=== PATIENT | male | born 1970 | race Caucasian/White ===

== ENCOUNTER 2020-03-16 14:38 | Emergency (ER) | payer SELFPAY ==
--- NOTE | 2020-03-16 16:04 | ER Document Report ---
ED Medical Screen (RME) - General Chief Complaint: Laceration Stated Complaint: LACERATION Time Seen by Provider: 03/16/20 15:56 Mode of Arrival: Ambulatory Information source: Patient Notes: Patient states that he had a drywall mud tool in his pocket and bent over grabbing supplies and accidentally cut his right forearm. Patient with large laceration to volar aspect of right forearm. Bleeding controlled at this time. I have greeted and performed a rapid initial assessment of this patient. A comprehensive ED assessment and evaluation of the patient, analysis of test results and completion of the medical decision making process will be conducted by additional ED providers. Physical Exam - Vital signs Vitals: Temp Pulse Resp BP Pulse Ox 97.6 F 106 H 18 149/98 H 100 03/16/20 15:15 03/16/20 15:15 03/16/20 15:15 03/16/20 15:15 03/16/20 15:15 - Skin Skin irregularity: Laceration - 9 cm laceration to volar aspect of right forearm Course - Vital Signs Vital signs: Temp Pulse Resp BP Pulse Ox 97.6 F 106 H 18 149/98 H 100 03/16/20 15:15 03/16/20 15:15 03/16/20 15:15 03/16/20 15:15 03/16/20 15:15
[2020-03-16] MEDS ORDERED: DIPH/PERTUSS(ACELL)/TETANUS VAC/PF 0.5 ML SYR (>=10YO) IM ONE (16:15)
[2020-03-16] MEDS ORDERED: HYDROCODONE/ACETAMINOPHEN 5-325 MG TABLET PO ONE (17:30)
[2020-03-16] MEDS ORDERED: LIDOCAINE 1%/EPINEPHRINE INJ 20 ML VIAL INJ ONE (17:31)
--- NOTE | 2020-03-16 18:25 | RADIOLOGY REPORT (SQ) ---
EXAM DESCRIPTION: FOREARM RIGHT IMAGES COMPLETED DATE/TIME: 03/16/2020 5:58 pm REASON FOR STUDY: arm lac COMPARISON: None. NUMBER OF VIEWS: Two views. TECHNIQUE: Two radiographic images acquired of the right forearm, including elbow and wrist in at le ast one projection. LIMITATIONS: None. FINDINGS: MINERALIZATION: Normal. BONES: No acute fracture. No worrisome bone lesions. SOFT TISSUES: Soft tissue injury. OTHER: No other significant finding. IMPRESSION: Soft tissue injury. No osseous abnormality. TECHNICAL DOCUMENTATION: JOB ID: [id number] [employer]- All Rights Reserved Reading location - IP/workstation name: [email or web address]
--- NOTE | 2020-03-16 19:54 | ER Document Report ---
ED General - General Chief Complaint: Laceration Stated Complaint: LACERATION Time Seen by Provider: 03/16/20 15:56 Mode of Arrival: Ambulatory Notes: 49 y/o male who reports no past medical history presenting today after laceration to right forearm caused by a dry walling tool/exact knife. Patient states that it was in his pocket and he leaned forward and lacerated his arm. He was able to control the bleeding by placing pressure. He can flex and extend his wrist. Can feel me touch his fingers. No additional symptoms reported at this time. He received his tetanus booster while in triage today. - Related Data Allergies/Adverse Reactions: No Known Allergies Allergy (Verified 03/16/20 16:13) Past Medical History - General Information source: Patient - Social History Smoking Status: Current Every Day Smoker Frequency of alcohol use: None Drug Abuse: None Family History: Reviewed & Not Pertinent - Past Medical History Cardiac Medical History: Reports: None Pulmonary Medical History: Reports: None Endocrine Medical History: Reports: None Renal/ Medical History: Reports: None - Immunizations Hx Diphtheria, Pertussis, Tetanus Vaccination: Yes - 03/16/2020 Review of Systems - Review of Systems Constitutional: No symptoms reported EENT: No symptoms reported Cardiovascular: No symptoms reported Respiratory: No symptoms reported Gastrointestinal: No symptoms reported Genitourinary: No symptoms reported Skin: See HPI Physical Exam - Vital signs Vitals: Temp Pulse Resp BP Pulse Ox 97.6 F 106 H 18 149/98 H 100 03/16/20 15:15 03/16/20 15:15 03/16/20 15:15 03/16/20 15:15 03/16/20 15:15 Interpretation: Tachycardic. No: Bradycardic, Tachypneic, Febrile - Notes Notes: Adult General: GENERAL: Alert, interacts well. No acute distress HEAD: Normocephalic, atraumatic EYES: Extraocular movements intact. ENT: Airway patent. Nares patent. NECK: Full range of motion. Supple. Trachea midline. LUNGS: Nontender chest wall. GENITOURINARY: Deferred EXTREMITIES: 9 cm laceration to right anterior forearm. Good distal sensation, Good cap refill. 2+ radial pulse. Moves all 4 extremities spontaneously. No cyanosis. BACK: Moves all extremities with full range of motion. NEUROLOGICAL: Alert and oriented x3. Normal speech. Strength 5/ 5 in all extremities. PSYCH: Normal affect, normal mood. SKIN: See extremities. Course - Re-evaluation Re-evalutation: 03/16/20 22:52 The wound is a 9 cm laceration to the anterior right forearm. The wound was copiously irrigated with normal saline and shurcleanz. The wound was explored for foreign bodies and none were found. The wound was prepped and draped in the normal sterile fashion. The wound was anesthetized using 1% lidocaine and epi. Deep closure was obtained with 4-0 vicryl and then the wound was approximated with 10, 3-0 ethilon. Good closure obtained Bleeding was well controlled and the patient tolerated the procedure well. Patient continues to be able to flex and extend wrist. Continues to have 2+ distal pulses and good distal sensation. I discussed appropriate wound care with the patient and that he will have to have suture removal in 7 days and that this can be done in the emergency room, an urgent care or primary care. I will also prescribe prophylactic antibiotics for the patient. Tylenol and ibuprofen can be used for pain relief. I discussed return precautions with the patient to include fever, chills, pain not controlled with tylenol or ibrupfen and with wrist movement, or purulent discharge. He may also return to the emergency department if he develops additional symptoms. Patient acknowledges and verbalizes understanding of instructions and plan. All questions answered. - Vital Signs Vital signs: Temp Pulse Resp BP Pulse Ox 98.0 F 84 20 135/84 H 99 03/16/20 20:16 03/16/20 20:16 03/16/20 20:16 03/16/20 20:16 03/16/20 20:16 Procedures - Laceration/Wound Repair Right Anterior Arm Wound length (cm): 9 Wound's Depth, Shape: Linear, Flap, Other - diagnol laceration. muscle visualized Discharge - Discharge Clinical Impression: Laceration Condition: Stable Disposition: HOME, SELF-CARE Instructions: Antibiotic Ointment Protection ([facility]), Laceration Care ([facility]), Prophylactic Antibiotic ([facility]), Soap Cleansing ([facility]), Tetanus Immunization Given ([facility]) Additional Instructions: Your laceration has been repaired. Is repaired with deep and superficial sutures. The superficial sutures will need to be removed in 7 days. This can be done in the emergency department, urgent care or by your primary care provider. Please keep the area clean and dry. You have been provided wound care instructions. Please return to the emergency department if you have signs of infection to include fever, chills, severe pain with wrist movement. You may use Tylenol and ibuprofen for your pain. Prescriptions: Cephalexin Monohydrate [Keflex 500 mg Capsule] 500 mg PO QID #20 capsule
[2020-03-16 20:16] VITALS: BP 135/84
== END 2020-03-16 20:16 | disposition home or self-care (01) ==
LOC: ER 14:38
PROC: 0HQDXZZ Repair Right Lower Arm Skin, External Approach (ICD-10-PCS; principal; 2020-03-16)
DX: S51.811A Laceration without foreign body of right forearm, initial encounter (principal); W26.0XXA Contact with knife, initial encounter; F17.200 Nicotine dependence, unspecified, uncomplicated
CPT/HCPCS: 99283; 90471; 73090; 90715; 12004; J3490